=== PATIENT | female | born 1960 | race Caucasian/White ===

== ENCOUNTER → 2017-03-15 | Outpatient (CLI) | payer BC ==
[~2017-03-15] MED LIST: ADVIL200 M1; ALBUTEROL 0.5ML INH; ALBUTEROL17 GM INH; ALPRAZOLAM PO; AMOXICILLIN; AMOXICILLIN PO; ATIVAN; CRESTOR PO; CYMBALTA; DYAZIDE 37.5/251 CAP PO; FOLIC ACID PO; IBUPROFEN PO; LOMOTIL TABLET1 TAB PO; LOZOL PO; MEDROL4 MG/DOSE-; PERCOCET PO; PERCOCET10 PO; SEROQUEL PO; SYNTHROID PO; ZOLOFT PO
--- NOTE | ~2017-03-15 | MR17 ---
[facility] A Service of [facility] RADIOLOGY TEXT RESULTS PATIENT: SANDOVAL ROUSSEAU LOCATION: [facility] : 64 UNIT #: [id number] AGE: [address]: Emmett Pollack MD SEX: F ORDER DR: [id number] [facility]. [place], [place] [address] [id number] O MR#: [id number] #: [id number] NAME: SANDOVAL ROUSSEAU : 1960 SEX: F STUDY DATE/TIME: 03/15/2017 9:34 UNIT: [facility] ROOM: STUDY DESCRIPTION: MR Brain WWo Contrast Attending Physician: Emmett Pollack M.D. Referring Physician: Emmett Pollack M.D. Ordering Physician: Emmett Pollack M.D. Primary Care Physician: Emmett Pollack M.D. MRI CENTER REPORT This report is preliminary unless electronic signature is present. EXAM Brain MRI with and without contrast HISTORY Left arm numbness and tingling for the past 4 days. TECHNIQUE Multiplanar imaging of the brain was performed with and without contrast. 12 mL of MultiHance was used. FINDINGS On diffusion weighted images there is no evidence of restricted diffusion to suggest a recent infarct. The routine brain images show a few small foci of bright FLAIR signal around ventricles consistent with minimal chronic deep white matter ischemic change. There is no evidence of mass lesion, hemorrhage or edema. After contrast administration no abnormal enhancement is seen. Extraaxial structures are unremarkable. IMPRESSION Minimal chronic deep white matter ischemic changes around ventricles. No evidence of recent infarct. Otherwise negative brain MRI. Dictated by... Shyam Hayward M.D. THIS IS AN ELECTRONICALLY VERIFIED REPORT Shyam Hayward M.D. at 03/18/2017 3:10 PM YESSICA/tung TD: 03/16/2017 23:17 JOB #: [id number] [facility] A Service of [facility] RADIOLOGY TEXT RESULTS PATIENT: SANDOVAL ROUSSEAU [facility] 64 UNIT #: [id number] AGE: [address]: Emmett Pollack MD SEX: F ORDER DR: MRI CENTER REPORT Page 1 of 1 COPY
[2017-03-15 10:10] LABS: POC - CREATININE 1.21 mg/dL (0.44-1.03)
== END | disposition home or self-care (01) ==
LOC: CMRI 08:39
PROVIDERS: Family Medicine
DX: R20.0 Anesthesia of skin (principal); R20.2 Paresthesia of skin
CPT/HCPCS: 70553; 82565; A9577